=== PATIENT | female | born 1960 | race African-American/Black ===

== ENCOUNTER 2017-02-16 22:51 | Emergency (ER) | payer MEDICAID ==
[~2017-02-16] VITALS: Ht 154.9 cm; Wt 95.3 kg
[2017-02-16 23:20] VITALS: BP 114/77
[2017-02-17] MEDS ORDERED: ALBUTEROL SULF8.5 GM INH (00:05)
[2017-02-17] MEDS ORDERED: LEVAQUIN500 MG ORAL (00:05)
[2017-02-17] MEDS ORDERED: PREDNISONE20 MG ORAL (00:05)
--- NOTE | 2017-02-17 00:06 | Emergency Room Report ---
History of Present Illness General Chief Complaint: Chest Pain Source: Patient Present Illness HPI Is a 56-year-old female with history of asthma. She said she's been coughing and congested for last 3 months now. 2 months ago she was placed and azithromycin and did not get better. Has used her inhaler more. No nausea no vomiting. Has some chest tightness. Coughing is nonproductive in nature. Denies any fever or chills. No other complaint. Allergies: Coded Allergies: No Known Allergies (Unverified , 02/16/17) Patient History Past Medical History: see triage record, old chart reviewed, asthma Past Surgical History: other Pertinent Family History: none Social History: Denies: smoking Last Menstrual Period: 1999 Now: No Immunizations: other Reviewed Nursing Documentation: PMH: Agreed, PSxH: Agreed Nursing Documentation-PMH Hx Hypertension: Yes Hx Gastrointestinal Problems: Yes - Crohn's Review of Systems Eye: Denies: eye pain, blurred vision ENT: Denies: ear pain, nose congestion, throat swelling Respiratory: Reports: cough, Denies: shortness of breath Cardiovascular: Denies: chest pain, palpitations Gastrointestinal: Denies: abdominal pain, diarrhea, nausea, vomiting Musculoskeletal: Denies: back pain, joint pain Skin: Denies: rash Neurological: Denies: headache, numbness Endocrine: Denies: increased thirst, increased urine Hematologic/Lymphatic: Denies: easy bruising All Other Systems: negative except mentioned in HPI Physical Exam Vital Signs Date Time Temp Pulse Resp B/P (MAP) Pulse Ox O2 Delivery O2 Flow Rate FiO2 02/16/17 23:19 98.1 84 18 114/77 98 Room Air vitals normal Sp02 EP Interpretation: reviewed, normal General Appearance: well appearing, no apparent distress, alert Head: normocephalic, atraumatic Eyes: bilateral eye PERRL, bilateral eye EOMI ENT: hearing grossly normal, normal pharynx Neck: full range of motion, supple, no meningismus Respiratory: chest non-tender, lungs clear, normal breath sounds, other - Coughing with inspiration Cardiovascular #1: regular rate, rhythm, no murmur Gastrointestinal: normal bowel sounds, non tender, no mass, no organomegaly, no bruit, non-distended Musculoskeletal: back normal, gait/station normal, normal range of motion Neurologic: alert, oriented x3 Psychiatric: mood/affect normal Skin: warm/dry Medical Decision Making Diagnostic Impression: Primary Impression: Asthma with exacerbation Qualified Codes: J45.31 - Mild persistent asthma with (acute) exacerbation Additional Impression: Atypical pneumonia ER Course Patient presents with coughing congestion for the last 3 months. X-rays unremarkable. This may be atypical pneumonia. We'll discharge home with antibiotics and prednisone. No evidence of ACS, PE, dissection to name a few. Chest X-Ray Diagnostic Results Chest X-Ray Diagnostic Results : Chest X-Ray Ordered: Yes # of Views/Limited/Complete: 1 View Indication: Shortness of Breath EP Interpretation: Yes Interpretation: no consolidation, no effusion, no pneumothorax, no acute cardiopulmonary disease Impression: No acute disease Electronically Signed by: Guy Matthew MD Last Vital Signs Date Time Temp Pulse Resp B/P (MAP) Pulse Ox O2 Delivery O2 Flow Rate FiO2 02/16/17 23:20 84 18 Room Air 02/16/17 23:20 98.1 114/77 98 Status: improved Disposition: HOME, SELF-CARE Condition: Stable Scripts Prednisone* (PREDNISONE*) 20 Mg Tablet 60 MG ORAL DAILY, #15 TAB Prov: GUY MATTHEW M.D. 02/17/17 Albuterol Sulfate* (ALBUTEROL SULFATE MDI*) 8.5 Gm Hfa.aer.ad 2 PUFF INH Q4H Y for cough/wheezing, #1 EA 0 Refills Prov: GUY MATTHEW M.D. 02/17/17 Levofloxacin* (LEVAQUIN*) 500 Mg Tablet 500 MG ORAL DAILY, #7 TAB Prov: GUY MATTHEW M.D. 02/17/17 Referrals: NOT CHOSEN [facility]/,REFERRING (PCP) Additional Instructions: Followup your DrPrince in 7 days. If not better may need referral to see a communications specialist. Return if symptom worsen. GUY MATTHEW M.D. Feb 17, 2017 00:06
[2017-02-17 00:13] VITALS: BP 114/77
--- NOTE | 2017-02-17 12:50 | Diagnostic Imaging Report ---
Indication: Dyspnea Comparison: None A single view chest radiograph was obtained. Findings: Cardiomediastinal appearance is within normal limits for age. Pulmonary vascularity is appropriate. The diaphragmatic contour is smooth and costophrenic angles are sharp. No pleural effusions are identified. The bones are osteopenic. Impression: No acute findings
== END 2017-02-17 00:15 | disposition home or self-care (01) ==
LOC: EMR 23:33
DX: J45.31 Mild persistent asthma with (acute) exacerbation (principal); J18.9 Pneumonia, unspecified organism; I10 Essential (primary) hypertension; K50.90 Crohn's disease, unspecified, without complications
CPT/HCPCS: 71045; 99283

== ENCOUNTER 2018-08-09 19:12 | Emergency (ER) | payer MEDICAID ==
[~2018-08-09] VITALS: Ht 154.9 cm; Wt 104.3 kg
[~2018-08-09 19:12] MED LIST: ALBUTEROL SULF8.5 GM INH; LEVAQUIN500 MG ORAL; PREDNISONE20 MG ORAL
[2018-08-09 19:20] VITALS: BP 110/76
[2018-08-09] MEDS ORDERED: Ketorolac 30mg Inj IM ONE (19:45)
[2018-08-09 19:52] LABS: APPEARANCE,URINE CLEAR; BILIRUBIN, URINE NEGATIVE (NEGATIVE); COLOR,URINE PALE YELLOW; GLUCOSE, URINE (UA) NEGATIVE (NEGATIVE); KETONES,URINE NEGATIVE (NEGATIVE); LEUKOCYTE ESTERASE ,URINE 2+ (NEGATIVE); NITRITE,URINE POSITIVE (NEGATIVE); PH,URINE 6 (4.5-8.0); PROTEIN,URINE NEGATIVE (NEGATIVE); UROBILINOGEN,URINE NORMAL MG/DL (0.0-1.0)
--- NOTE | 2018-08-09 20:33 | Emergency Room Report ---
History of Present Illness General Chief Complaint: Upper Extremity Injury Source: Patient Present Illness HPI 57-year-old female with no significant past medical history here complaining of 1 month of left shoulder pain radiating to left fingers. Patient is rating the pain 7 out of 10, intermittent, sharp, with extension of her arm. She denies any injury or fall. Patient is right-handed and reports that she does most of her activities with her right side. Denies lifting heavy objects with left arm. Has not follow-up with a primary care provider in this regard. Denies chest pain chest pain radiation, palpitation, nausea vomiting, abdominal pain. Patient complains of few days of urinary frequency however denies hematuria and dysuria. Denies fever and chills. Has taken [id number]-bhkhyrq ibuprofen with minimal relief for her symptoms. Denies tingling and numbness. Allergies: Coded Allergies: No Known Allergies (Unverified , 02/16/17) Patient History Past Medical History: see triage record Past Surgical History: unable to obtain Pertinent Family History: none Last Menstrual Period: 2005 Now: No Reviewed Nursing Documentation: PMH: Agreed; PSxH: Agreed Nursing Documentation-PMH Past Medical History: No Stated History Hx Hypertension: Yes Hx Gastrointestinal Problems: Yes - Crohn's Review of Systems All Other Systems: negative except mentioned in HPI Physical Exam Vital Signs Date Time Temp Pulse Resp B/P (MAP) Pulse Ox O2 Delivery O2 Flow Rate FiO2 08/09/18 19:18 98.1 82 18 110/76 (87) 96 Room Air Sp02 EP Interpretation: reviewed, normal General Appearance: normal inspection, well appearing, no apparent distress, alert, GCS 15 Head: normocephalic, atraumatic Eyes: bilateral eye normal inspection, bilateral eye PERRL ENT: normal ENT inspection, hearing grossly normal Neck: normal inspection, full range of motion, supple Respiratory: normal inspection, chest non-tender, no rhonchi, no wheezing Cardiovascular #1: normal inspection, regular rate, rhythm, no murmur, normal capillary refill Gastrointestinal: normal inspection, non tender, soft Genitourinary: no CVA tenderness Musculoskeletal: normal inspection, back normal, digits/nails normal, gait/ station normal, normal range of motion, non-tender Neurologic: normal inspection, alert, oriented x3 Psychiatric: normal inspection, judgement/insight normal Skin: no rash, normal color Lymphatic: normal inspection, no adenopathy Medical Decision Making PA Attestation All my diagnosis and treatment plans were reviewed ad discussed with my supervising physician Dr. Weber Diagnostic Impression: Primary Impression: Tendonitis Additional Impressions: Arthritis UTI (urinary tract infection) ER Course 57-year-old female with no significant past medical history here complaining of 1 month of left shoulder pain radiating to left fingers. Patient is rating the pain 7 out of 10, intermittent, sharp, with extension of her arm. She denies any injury or fall. Patient is right-handed and reports that she does most of her activities with her right side. Denies lifting heavy objects with left arm. Has not follow-up with a primary care provider in this regard. Denies chest pain chest pain radiation, palpitation, nausea vomiting, abdominal pain. Patient complains of few days of urinary frequency however denies hematuria and dysuria. Denies fever and chills. Has taken oeqo-ozc-ycewhco ibuprofen with minimal relief for her symptoms. Denies tingling and numbness. Ddx considered but are not limited to: UTI, pylonephritis, urinary incontinence , prolapsed bladder, left shoulder fracture, tendinitis, rotator cuff tear Vital signs: are WNL, pt. is afebrile H&PE are most consistent with: Tendinitis of left shoulder, UTI, arthritis ORDERS: UA, left shoulder x-ray, Toradol, naproxen, Macrobid ED INTERVENTIONS: Toradol DISCHARGE: At this time pt. is stable for d/c to home. Will provide printed patient care instructions, and any necessary prescriptions. Care plan and follow up instructions have been discussed with the patient prior to discharge. Follow-up with the primary care provider for referral to physical therapy as well as further evaluation and possible MRI of left shoulder, take medication as directed avoid strenuous physical activity with the affected side alternate between icing and heating the affected area. Positive leukocytes and white blood cells in urine Other X-Ray Diagnostic Results Other X-Ray Diagnostic Results #1: X-Ray ordered: shoulder left # of Views/Limited Vs Complete: 2 View Indication: Pain EP Interpretation: Yes PA Xray: Interpretation reviewed, by supervising MD, and agrees with findings. Interpretation: no dislocation, no soft tissue swelling, no fractures, other Electronically Signed by: jacinta hagan PA-C Other X-Ray Diagnostic Results #2: Interpretation: other Impression: Other CT/MRI/US Diagnostic Results CT/MRI/US Diagnostic Results : Imaging Test Ordered: facial CT no contrast Impression CT FACIAL Without Contrast: Comparison: None. Impression: -Soft tissue swelling over the chin. -Otherwise unremarkable study. Last Vital Signs Date Time Temp Pulse Resp B/P (MAP) Pulse Ox O2 Delivery O2 Flow Rate FiO2 08/09/18 19:18 98.1 82 18 110/76 (87) 96 Room Air Disposition: HOME, SELF-CARE Condition: Stable Scripts Naproxen* (NAPROXEN*) 500 Mg Tablet 500 MG ORAL TWICE A DAY, #30 TAB Prov: Jacinta Lima 08/09/18 Nitrofurantoin Monohyd/M-Cryst* (MACROBID 100 MG*) 100 Mg Capsule 100 MG ORAL EVERY 12 HOURS for 7 Days, #14 CAP Prov: Jacinta Lima 08/09/18 Patient Instructions: Arthritis, Biceps Tendon Tendinitis (Distal) With Rehab- [facility], Urinary Tract Infection, [id number] Additional Instructions: Take medication as directed follow-up with a primary care provider for physical therapy referral as well as further assessment. Return to the emergency room if worsening symptoms Jacinta Lima Aug 09, 2018 20:33
[2018-08-09] MEDS ORDERED: NITROFURANTOIN100 M2 ORAL (20:41)
[2018-08-09] MEDS ORDERED: NAPROXEN500 M2 ORAL (20:41)
[2018-08-09 20:45] VITALS: BP 122/80
--- NOTE | 2018-08-10 12:38 | Diagnostic Imaging Report ---
Indication: left shoulder pain Findings: 3 views of the left shoulder were obtained. Bones are osteopenic. There is narrowing of the glenohumeral joint and AC joint. Osteophytes noted. No fracture identified. There is no malalignment. IMPRESSION: No acute injury identified Osteoarthrosis and generalized the osteopenia
== END 2018-08-09 20:45 | disposition home or self-care (01) ==
LOC: EMR 19:55
DX: M77.9 Enthesopathy, unspecified (principal); M19.90 Unspecified osteoarthritis, unspecified site; N39.0 Urinary tract infection, site not specified; I10 Essential (primary) hypertension
CPT/HCPCS: 73030; 81001; 87086; 87181; 96372; 99283; J1885